=== PATIENT | female | born 1995 ===

== ENCOUNTER 2020-04-21 11:15 | Day surgery (SDC) | payer MEDICAID ==
[~2020-04-21 11:15] MED LIST: CEFAZOLIN 1 GM/D5W RTU 1 GM/50 ML RTUPB IV ONE
[2020-04-21 11:53] LABS: HEMATOCRIT 35.9 % (36.0-47.0); HEMOGLOBIN 12.5 g/dL (12.0-15.5); MEAN CORPUSCULAR HEMOGLOBIN 30.3 pg (27.0-33.4); MEAN CORPUSCULAR HGB CONC 34.9 g/dL (32.0-36.0); MEAN CORPUSCULAR VOLUME 87 fl (80-97); PLATELET COUNT 292 10^3/uL (150-450); RED BLOOD COUNT 4.12 10^6/uL (3.72-5.28); WHITE BLOOD COUNT 8.8 10^3/uL (4.0-10.5)
[2020-04-21 12:20] LABS: APPEARANCE,URINE SLIGHTLY-CLOUDY; BILIRUBIN,URINE NEGATIVE (NEGATIVE); COLOR,URINE YELLOW; GLUCOSE, URINE NEGATIVE (NEGATIVE); KETONES,URINE NEGATIVE (NEGATIVE); LEUKOCYTE ESTERASE,URINE LARGE (NEGATIVE); NITRITE,URINE NEGATIVE (NEGATIVE); PROTEIN,URINE NEGATIVE (NEGATIVE); UROBILINOGEN,URINE NEGATIVE mg/dL (<2.0)
[2020-04-21] MEDS ORDERED: FENTANYL CITRATE INJ/PF 100 MCG/2 ML AMPUL ONE (12:57)
[2020-04-21] MEDS ORDERED: MIDAZOLAM 2 MG/2 ML INJ ONE (12:58)
[2020-04-21] MEDS ORDERED: PROPOFOL INJ 200 MG/20 ML VIAL IV ONE (12:58)
[2020-04-21] MEDS ORDERED: DOXYCYCLINE HYCLATE 100 MG in DEXTROSE 5%-WATER 250 ML IV PRN (13:26)
[2020-04-21] MEDS ORDERED: PROMETHAZINE HCL INJ 25 MG/1 ML VIAL IV PRN ×2 (13:32)
[2020-04-21] MEDS ORDERED: DIPHENHYDRAMINE HCL 50 MG/ML VIAL IV PRN (13:32)
[2020-04-21] MEDS ORDERED: MORPHINE SULFATE 10 MG/ML INJ IV PRN (13:32)
[2020-04-21] MEDS ORDERED: OXYCODONE-ACETAMINOPHEN 5-325 MG TABLET PO PRN ×2 (13:32)
[2020-04-21] MEDS ORDERED: ONDANSETRON HCL INJ/PF 4 MG/2 ML SDV IV PRN (13:32)
[2020-04-21] MEDS ORDERED: FENTANYL CITRATE INJ/PF 100 MCG/2 ML AMPUL IV PRN ×3 (13:32)
[2020-04-21] MEDS ORDERED: MEPERIDINE HCL/PF INJ 25 MG/1 ML DISP.SYRIN IV PRN (13:32)
[2020-04-21] MEDS ORDERED: METHYLERGONOVINE MALEATE INJ/PF 0.2 MG/1 ML AMPULE ONE (13:38)
[2020-04-21] MEDS ORDERED: LIDOCAINE 1%/EPINEPHRINE INJ 20 ML VIAL ONE (13:38)
--- NOTE | 2020-04-21 15:09 | Operative Report ---
Operative Report DATE OF SURGERY: 04/21/20 PREOPERATIVE DIAGNOSIS: MAB at 8+0ega POSTOPERATIVE DIAGNOSIS: DESIREE OPERATION: Suction Dilation and Currettage SURGEON: BHARAT GARCIA ANESTHESIA: LMAC TISSUE REMOVED OR ALTERED: POC COMPLICATIONS: None ESTIMATED BLOOD LOSS: less than 10 INTRAOPERATIVE FINDINGS: 8-9wk uterus, no adnexal masses, moderate products of conception. PROCEDURE: Anesthesia: [Arnoldo Arce MD, Arina Moon CRNA] EBL: [less than 10ml] IVF: [600ml] UOP: [void prior to OR] Indications: [24yo at 9+6ega presents for MAB at 8wks by measurement. No FHTs on multiple US in office. She was diagnosed with MAB on 04/09 and cytotec attempted. However, the patient reports no response to cytotec. US on follow up appt on 04/17 with no FHTs and no response to cytotec. She was counseled at that time and desired to proceed with planned Suction D&C.] Procedure: The patient was taken to the Operating Room where general anesthesia was obtained without difficulty. She was prepped and draped in the normal sterile fashion in the dorsal lithotomy position. Exam under anesthesia was performed and noted above. A speculum was placed in the vagina. The anterior cervix was grasped with a single-tooth tenaculum and the uterus sounded to [9] after paracervical block was performed with 8 mL of 1% lidocaine with epinephrine. The cervix was noted to be closed at the beginning of the procedure. Sequential dilators were then used to dilate the cervix to accommodate the the 8 mm suction curet curved. The 8 mm curved suction curet was gently advanced in the usual fashion and good return of tissue. The suction device was then activated and the curet rotated to clear the uterus of the products of conception. A sharp curettage was then performed. The suction device was then gently reintroduced and activated and the curet rotated to clear the uterus of conception which was loosened with recent sharp curettage. The sharp curettage was then performed again until a gritty texture was noted and the cavity was felt to be empty of further tissue. At this time there was minimal bleeding noted from the cervix. All instruments were removed from the patient's cervix and vagina. Silver nitrate was applied to the tenaculum site for hemostasis. Sponge lap needle and instrument counts are correct 2. Doxycycline 100 mg IV was given perioperatively. The patient tolerated the procedure well and was taken to the recovery area awake and in stable condition. The patient was discharged home with pain medications as well as by mouth Methergine.
[2020-04-21 15:41] VITALS: BP 112/74
== END 2020-04-21 15:30 | disposition home or self-care (01) ==
LOC: OROUT 11:15
PROVIDERS: ATTEND Student in an Organized Health Care Education/Training Program
DX: O02.1 Missed abortion (principal); Z03.818 Encounter for observation for suspected exposure to other biological agents ruled out
CPT/HCPCS: 59820; 36415; 85027; 87635 ×2; 81001; J2250; J0690; J3490 ×2; J3010; J7060; J2704; C9803; 88305; J2210

== ENCOUNTER → 2020-05-27 | Outpatient (CLI) | payer MEDICAID | LOC: OD 14:02 | PROVIDERS: ATTEND Student in an Organized Health Care Education/Training Program | DX: O02.1 Missed abortion (principal); Z3A.00 Weeks of gestation of pregnancy not specified | CPT/HCPCS: 36415; 84702; 86900; 86901 ==